=== PATIENT | female | born 1980 | race Caucasian/White ===

== ENCOUNTER 2018-05-25 13:03 | Emergency (ER) | payer BC ==
--- NOTE | 2018-05-25 13:27 | EDM.PDOC ---
ED HPI GENERAL MEDICAL PROBLEM - General Stated Complaint: HBP AND TOOTHACHE Time Seen by Provider: 05/25/18 13:06 Source of Information: Reports: Patient, Family (children) History Limitations: Reports: No Limitations - History of Present Illness INITIAL COMMENTS - FREE TEXT/NARRATIVE: 37 y.o.w.f - smoker - came to and was transfered to the ed due to HTN and tooth ache. Pt complained about pain and swelling of Tooth #7. She has a dental appointment Sunday next week. Her BP was elevated to 169/76 on arrival, possible due to pain. No N/V/D no Dizziness or any other acute medical issues. BP 169/96 pulse 56 RR 18 Pulse ox 100% Temp 36.7 Onset Date: 05/22/18 Onset Time: 08:00 Duration: Day(s):, Getting Worse Location: Reports: Face Quality: Reports: Ache, Burning, Dull Severity: Moderate Improves with: Reports: None Worsens with: Reports: None Context: Reports: Other (poor dentition) Right Upper Tooth/Teeth Pain Score (Numeric/FACES): 9 - Related Data Allergies Allergy/AdvReac Type Severity Reaction Status Date / Time codeine Allergy Cannot Verified 05/25/18 13:27 Remember meperidine [From Demerol] Allergy Cannot Verified 05/25/18 13:27 Remember mirtazapine [From Remeron] Allergy Cannot Verified 05/25/18 13:27 Remember Home Meds: Home Meds Acetaminophen/HYDROcodone [[place] 325-5 MG] 1 tab PO Q4H PRN #14 tab 05/25/18 [Rx ] Amoxicillin/Potassium Clav [Augmentin 875-125 Tablet] 1 each PO BID #20 tablet 05/25/18 [Rx] Gabapentin [Neurontin] 300 mg PO TID 05/25/18 [History] ED ROS ENT - Review of Systems Review Of Systems: See Below Constitutional: Reports: No Symptoms HEENT: Reports: Dental Pain Respiratory: Reports: No Symptoms Cardiovascular: Reports: No Symptoms Endocrine: Reports: No Symptoms GI/Abdominal: Reports: No Symptoms : Reports: No Symptoms Musculoskeletal: Reports: No Symptoms Skin: Reports: No Symptoms Neurological: Reports: No Symptoms Psychiatric: Reports: No Symptoms Hematologic/Lymphatic: Reports: No Symptoms Immunologic: Reports: No Symptoms ED EXAM, ENT - Physical Exam Exam: See Below Exam Limited By: No Limitations General Appearance: Alert, WD/WN, Mild Distress Eye Exam: Bilateral Eye: Normal Inspection Ears: Normal External Exam, Normal Canal, Hearing Grossly Normal, Normal TMs Nose: Normal Inspection, Normal Mucousa Mouth/Throat: Dental Pain, Dental Tenderness Head: Atraumatic, Normocephalic Neck: Normal Inspection, Supple, Non-Tender, Full Range of Motion Respiratory/Chest: No Respiratory Distress, Lungs Clear, Normal Breath Sounds, No Accessory Muscle Use, Chest Non-Tender Cardiovascular: Normal Peripheral Pulses, Regular Rate, Rhythm, No Edema, No Gallop, No JVD, No Murmur GI/Abdominal: Normal Bowel Sounds, Soft, Non-Tender, No Organomegaly, No Distention, No Abnormal Bruit, No Mass, Pelvis Stable (Female) Exam: Deferred Rectal (Female) Exam: Deferred Back: Normal Inspection, Full Range of Motion Extremities: Normal Inspection, Normal Range of Motion, Non-Tender, No Pedal Edema, Normal Capillary Refill Neurological: Alert, Oriented, CN II-XII Intact, Normal Cognition, Normal Gait, Normal Reflexes, No Motor/Sensory Deficits Psychiatric: Normal Affect, Normal Mood Skin: Warm, Dry, Intact, Normal Color, No Rash Lymphatic: No Adenopathy Course - Vital Signs Text/Narrative:: 37 y.o.w.f - smoker - came to and was transfered to the ed due to HTN and tooth ache. Pt complained about pain and swelling of Tooth #7. She has a dental appointment Sunday next week. Her BP was elevated to 169/76 on arrival, possible due to pain. No N/V/D no Dizziness or any other acute medical issues. BP 169/96 pulse 56 RR 18 Pulse ox 100% Temp 36.7 PE: WNWD W F with toothache and elevated BP Impression: Toothache Abscess vs gingivitis, situational HTN Tx: Abx and pain meds as prescription Plan: D/C with instructions Last Recorded V/S: Last Vital Signs Temp 37.0 C 05/25/18 13:03 Pulse 56 L 05/25/18 13:03 Resp 18 05/25/18 13:03 BP 169/97 H 05/25/18 13:03 Pulse Ox 100 05/25/18 13:03 Departure - Departure Time of Disposition: 13:27 Disposition: Home, Self-Care 01 Condition: Good Clinical Impression: Toothache, Gingivitis - Discharge Information *PRESCRIPTION DRUG MONITORING PROGRAM REVIEWED*: Yes *COPY OF PRESCRIPTION DRUG MONITORING REPORT IN PATIENT SANGEETHA: Yes Prescriptions: Acetaminophen/HYDROcodone [[place] 325-5 MG] 1 tab PO Q4H PRN #14 tab PRN Reason: for severe pain only Amoxicillin/Potassium Clav [Augmentin 875-125 Tablet] 1 each PO BID #20 tablet Instructions: Acetaminophen; Hydrocodone tablets or capsules, Gingivitis, Easy- to-Read, Amoxicillin capsules or tablets Referrals: Michelle Medel PA-C [Primary Care Provider] - Forms: ED Department Discharge Additional Instructions: Please quit tobacco use, please take the Abx and pain meds as recommended, please f/u with the Dentist a.s.a.p, please check your BP in next 3 days and f/ u with your PMD is needed. Come back if your symptoms get worse acutely
== END 2018-05-25 13:45 | disposition home or self-care (01) ==
LOC: FB.ED 13:03
DX: K05.10 Chronic gingivitis, plaque induced (principal); K08.89 Other specified disorders of teeth and supporting structures; I10 Essential (primary) hypertension; Z88.5 Allergy status to narcotic agent; Z88.8 Allergy status to other drugs, medicaments and biological substances
CPT/HCPCS: 99282